=== PATIENT | female | born 1980 | race Hispanic/Latino ===

== ENCOUNTER 2025-08-08 | Emergency (ER) | payer OTHER ==
[~2025-08-08] VITALS: Ht 154.9 cm; Wt 69.9 kg
[2025-08-08 00:50] LABS: BASOPHILS % 0.5 % (0.0-1.0); EOSINOPHILS % 1.0 % (0.0-6.0); LYMPHOCYTES % 37.6 % (18.0-39.1); MONOCYTES % 8.7 % (4.4-11.3); NEUTROPHILS % 51.9 % (38.7-80.0); RED CELL DISTRIBUTION WIDTH 11.9 % (11.7-14.4)
[2025-08-08] MEDS: KETOROLAC TROMETHAMINE 30 MG/ML VIAL IV STA ×2 (00:50→01:30)
[2025-08-08 01:22] LABS: EST GLOMERULAR FILTRATION RATE 108 ML/MIN (>=60)
[2025-08-08] MEDS ORDERED: Morphine 2mg Syringe 2 MG/ML SYR IV STA (02:00)
[2025-08-08] MEDS ORDERED: ONDANSETRON HCL INJ 2MG/ML 2ML 2 MG/ML VIAL IV STA (02:00)
[2025-08-08 02:05] VITALS: PULSE 62; RESP 16; TEMP 98.4
[2025-08-08] MEDS ORDERED: KETOROLAC TROMETHAMINE 30 MG/ML VIAL IV STA (02:05)
[2025-08-08] MEDS ORDERED: KETOROLAC TROME10 MG PO (02:08)
[2025-08-08] MEDS ORDERED: ULTRAM 50MG50 MG PO (02:08)
[2025-08-08] MEDS: MAGNESIUM/ALUMINUM/SIMETHICONE 30 ML UDC PO STA (02:31)
[2025-08-08] MEDS: LIDOCAINE VISC 2% SOLN 15 ML UDC PO STA (02:31)
[2025-08-08] MEDS: BELLADONNA ALK/PHENOBARBITAL 5 ML UDC PO ONE (02:31)
[2025-08-08 02:33] VITALS: BP 100/77; PULSE 60; RESP 19; O2SAT 100
== END 2025-08-08 02:44 | disposition home or self-care (01) ==
LOC: ER 00:12
DX: R06.02 Shortness of breath (principal); R07.89 Other chest pain; E78.5 Hyperlipidemia, unspecified; K21.9 Gastro-esophageal reflux disease without esophagitis; F41.9 Anxiety disorder, unspecified
CPT/HCPCS: 36415; 71045; 80053; 82550; 83690; 83880; 84484; 84702; 85025; 93005; 99284; J1885